=== PATIENT | female | born 1980 | race Caucasian/White ===

== ENCOUNTER 2017-01-16 17:42 | Emergency (ER) | payer SELFPAY ==
[2017-01-16] MEDS ORDERED: Ketorolac Tromethamine 30 MG/ML VIAL ONE (18:06)
[2017-01-16] MEDS ORDERED: Prochlorperazine 10 MG/2 ML VIAL ONE (18:06)
[2017-01-16] MEDS ORDERED: diphenhydrAMINE HCl 50 MG/ML 1 ML VIAL ONE (18:06)
--- NOTE | 2017-01-16 20:03 | CT ---
CT BRAIN WITHOUT CONTRAST: History: Headache. Comparison: None. FINDINGS: No acute territorial infarct or hemorrhage. No midline shift of mass effect. Ventricular size and ex traaxial CSF spaces are normal. Calvarium is intact. Paranasal sinuses and mastoids are clear. IMPRESSION: No acute intracranial abnormality. POS: [facility]
== END 2017-01-16 19:28 | disposition home or self-care (01) ==
LOC: BURERS 17:42
DX: G43.909 Migraine, unspecified, not intractable, without status migrainosus (principal)
CPT/HCPCS: 70450; 96361; 96374; 96375; J0780; J1200; J1885

== ENCOUNTER 2017-07-24 19:33 | Emergency (ER) | payer SELFPAY ==
[2017-07-24] MEDS ORDERED: Ketorolac Tromethamine 30 MG/ML VIAL ONE (19:56)
[2017-07-24] MEDS ORDERED: diphenhydrAMINE 50 MG/ML VIAL ONE (19:56)
[2017-07-24] MEDS ORDERED: methylPREDNISolone Sod Succ/PF 125 MG/2 ML VIAL ONE (19:56)
[2017-07-24] MEDS ORDERED: Prochlorperazine 10 MG/2 ML VIAL ONE (19:56)
== END 2017-07-24 21:31 | disposition home or self-care (01) ==
LOC: BURERS 19:33
DX: G43.909 Migraine, unspecified, not intractable, without status migrainosus (principal)
CPT/HCPCS: 96361; 96374; 96375; J0780; J1200; J1885; J2930

== ENCOUNTER 2018-02-24 21:03 | Emergency (ER) | payer SELFPAY ==
[2018-02-24 21:31] LABS: #Basophils 0.1 thou/uL (0.0-0.2); #Eosinphils 0.3 thou/uL (0.0-0.7); #Lymphocytes 2.9 thou/uL (1.20-3.40); #Monocytes 0.6 thou/uL (0.11-0.59); #Neutrophils 4.2 thou/uL (1.40-6.50); %Basophils 1.2 % (0.0-1.0); %Eosinophils 3.9 % (0.0-10.0); %Lymphocytes 36.1 % (21.0-51.0); %Monocytes 7.1 % (0.0-10.0); %Neutrophils 51.7 % (42.0-75.0); Hemoglobin 10.4 g/dL (12.0-16.0); Mean Corpuscular HGB CONC 31.3 g/dL (32.0-36.0); Mean Corpuscular Hemoglobin 25.2 pg (27.0-31.0); Mean Corpuscular Volume 80.7 fL (78.0-98.0); Mean Platelet Volume 7.4 fL (7.4-10.4); Platelet Count 328 thou/uL (130-400); Red Blood Cell (RBC) Count 4.11 mill/uL (4.20-5.40); White Blood Cell (WBC) Count 8.1 thou/uL (4.8-10.8)
[2018-02-24 21:44] LABS: Anion Gap 13 mmol/L (10-20); BUN (Urea Nitrogen) 14 mg/dL (7.0-18.7); Calc. Creatinine Clearance 0 mL/min (70-130); Calcium 9.3 mg/dL (7.8-10.44); Carbon Dioxide 26 mmol/L (22-29); Chloride 106 mmol/L (98-107); Estimated GFR-MDRD 76; Glucose 92 mg/dL (70-105); Potassium 3.7 mmol/L (3.5-5.1); Sodium 141 mmol/L (136-145)
[2018-02-24] MEDS ORDERED: HYDROcodone/Acetaminophen 5/325 mg Tablet ONE (21:47)
[2018-02-24] MEDS ORDERED: Ibuprofen 800 MG TAB ONE (21:47)
--- NOTE | 2018-02-27 07:58 | RAD ---
RIGHT FOOT THREE VIEWS: 02/24/18 HISTORY: Foot pain. There is a calcaneal spur at the plantar fascia insertion. There is no signs of fracture or dislocati on. Very minimal arthritic changes of the first metatarsophalangeal joint are seen. IMPRESSION: No acute findings. POS: [facility]
== END 2018-02-24 22:10 | disposition home or self-care (01) ==
LOC: BURERS 21:03
DX: M10.9 Gout, unspecified (principal); G43.909 Migraine, unspecified, not intractable, without status migrainosus
CPT/HCPCS: 36415; 80048; 84550; 85025